=== PATIENT | female | born 1970 | race Caucasian/White ===

== ENCOUNTER 2022-07-17 19:39 | Inpatient (IN) | payer OTHER ==
[2022-07-17] MEDS ORDERED: Sodium Chloride 0.9% 10 ML Syringe FLUSH PRN (19:55)
[2022-07-17] MEDS ORDERED: Sodium Chloride 0.9% 2.5 ML Syringe FLUSH PRN (19:55)
[2022-07-17] MEDS ORDERED: DEXTROSE 5% IV STA ×2 (20:11)
[2022-07-17] MEDS ORDERED: WATER IV STA ×2 (20:11)
[2022-07-17] MEDS ORDERED: LEVETIRACETAM IV STA ×2 (20:11)
[2022-07-17 20:40] LABS: CARBON DIOXIDE,CO2 25.8 mmol/L (21.0-32.0); POTASSIUM,K 4.1 mmol/L (3.5-5.1)
[2022-07-17] MEDS ORDERED: Ondansetron 4 MG/2 ML SDV IVPUSH ONE (21:04)
[2022-07-17] MEDS ORDERED: Iopamidol 755 Mg/ML 100 ML Bottle IVPUSH ONE (21:44)
[2022-07-17] MEDS ORDERED: Nitrofurantoin Monohydrate/Macrocrystalline 100 MG Cap PO ONE (21:54)
[2022-07-17] MEDS ORDERED: Acetaminophen 500 MG Tab PO ONE (22:16)
[2022-07-18 06:40] LABS: HEMOGLOBIN A1C 5.9 %
[2022-07-18 06:45] LABS: CARBON DIOXIDE,CO2 26.6 mmol/L (21.0-32.0); POTASSIUM,K 4.1 mmol/L (3.5-5.1)
[2022-07-18] MEDS ORDERED: Sodium Chloride 0.9% 10 ML Syringe FLUSH PRN (08:00)
[2022-07-18] MEDS ORDERED: Acetaminophen 325 MG Tab PO PRN (08:00)
[2022-07-18] MEDS ORDERED: Ondansetron 4 MG/2 ML SDV IVPUSH PRN (08:00)
[2022-07-18] MEDS ORDERED: Sodium Chloride 0.9% 2.5 ML Syringe FLUSH PRN (08:00)
[2022-07-18] MEDS ORDERED: Gadobenate Dimeglumine 529 MG/ML 20 ML SDV IVPUSH STA (08:25)
[2022-07-18] MEDS: Aspirin 81 MG Tab.Chew PO SCH (09:45)
[2022-07-18] MEDS: levETIRAcetam 500 MG Tab PO SCH ×2 (09:46→20:13)
[2022-07-18] MEDS ORDERED: Enoxaparin 40 MG/0.4 ML Syringe SUBCUT SCH (11:30)
[2022-07-18] MEDS: Cephalexin 500 MG Cap PO SCH ×2 (11:40→20:13)
[2022-07-18] MEDS: Clopidogrel 75 MG Tab PO SCH (13:03)
[2022-07-18] MEDS ORDERED: atorvaSTATin 40 MG Tab PO SCH (21:00)
[2022-07-19 06:28] LABS: CARBON DIOXIDE,CO2 27.1 mmol/L (21.0-32.0); POTASSIUM,K 4.3 mmol/L (3.5-5.1)
[2022-07-19] MEDS: Clopidogrel 75 MG Tab PO SCH (08:37)
[2022-07-19] MEDS: Cephalexin 500 MG Cap PO SCH (08:37)
[2022-07-19] MEDS: levETIRAcetam 500 MG Tab PO SCH (08:37)
[2022-07-19] MEDS: Aspirin 81 MG Tab.Chew PO SCH (08:37)
[2022-07-19] MEDS ORDERED: Fluconazole 150 MG Tab PO ONE (08:41)
[2022-07-23 05:07] LABS: PROTEIN S, FREE 116 % (61-136); PROTEIN S, TOTAL 140 % (60-150)
== END 2022-07-19 11:13 | disposition home or self-care (01) | DRG 65 ==
LOC: MW.ED 19:39 → MW.MS 22:44 → OBSVTOIN 07-18 09:34 → MW.MS 07-18 14:22
PROVIDERS: ADMIT Internal Medicine; ATTEND Internal Medicine
DX: I63.9 Cerebral infarction, unspecified (principal); N39.0 Urinary tract infection, site not specified; G81.94 Hemiplegia, unspecified affecting left nondominant side; Z79.82 Long term (current) use of aspirin; G40.909 Epilepsy, unspecified, not intractable, without status epilepticus; R47.81 Slurred speech; F41.9 Anxiety disorder, unspecified; F32.A Depression, unspecified; Z20.822 Contact with and (suspected) exposure to COVID-19
CPT/HCPCS: 36415; 70450; 70450-26; 70496; 70496-26; 70498; 70498-26; 70553; 70553-26; 71045; 71045-26; 80048; 80053; 80061; 80305-QW; 81001; 82947; 83036; 83735; 84443; 85025; 85027; 85300; 85301; 85302; 85303; 85305; 85306; 85610; 85613; 85730; 86147; 87086; 87088; 87186; 93005; 93010; 93306; 96365; 96375; 97161-GP; 97166-GO; 99221; 99238; 99285; 99285-25; A9270-GY; A9577; G0378; J1650; J1953; J2405; J7060; Q9967; U0002